=== PATIENT | female | born 1980 | race African-American/Black ===

== ENCOUNTER 2025-04-27 23:00 | Emergency (ER) | payer MEDICAID, OTHER ==
[~2025-04-27] VITALS: Ht 157.5 cm; Wt 95.3 kg
[2025-04-28] MEDS ORDERED: ONDANSETRON 4 MG/2 ML VIAL ONE (01:15)
[2025-04-28] MEDS ORDERED: MORPHINE SULFATE 2 MG/1 ML DISP.SYRIN ONE (01:16)
[2025-04-28] MEDS: ONDANSETRON HCL 4 MG TABLET PO ONE (01:25)
[2025-04-28] MEDS: MORPHINE SULFATE 2 MG/1 ML DISP.SYRIN IM ONE (01:25)
[2025-04-28] MEDS ORDERED: ETOMIDATE 20 MG/10 ML VIAL ONE (02:00)
[2025-04-28] MEDS: ETOMIDATE 20 MG/10 ML VIAL IV ONE (02:15)
[2025-04-28 02:55] LABS: PLATELET COUNT (AUTO) 300 K/uL (179-408); RED BLOOD CELL COUNT(AUTO) 4.36 MIL/uL (3.63-4.92); RED CELL DISTRIBUTION WIDTH 15.2 % (12.3-17.7); WHITE BLOOD COUNT (AUTO) 7.0 K/uL (3.8-11.8)
[2025-04-28 03:00] LABS: CREATININE 1.0 mg/dL (0.6-1.3); SODIUM SERUM 140.0 mmol/L (136-145); UREA NITROGEN, BLOOD 16.0 mg/dL (7-18)
[2025-04-28 03:05] LABS: ASPARTATE AMINOTRANSFERASE 11.0 U/L (15-37); TOTAL PROTEIN, SERUM 7.2 g/dL (6.4-8.2)
[2025-04-28] MEDS ORDERED: CEFTRIAXONE /D5W 50ML IVPB **ER PYXIS IV ONE (03:12)
[2025-04-28] MEDS: CEFTRIAXONE 500 MG VIAL IV ONE (03:20)
[2025-04-28] MEDS: IV NS 1000 ML 1,000 ML IV ONE (03:20)
[2025-04-28] MEDS ORDERED: CLIN-118 PO (03:56)
[2025-04-28] MEDS ORDERED: KETO10TA2 PO (03:56)
[2025-04-28] MEDS ORDERED: KETOROLAC TROMETHAMINE 30 MG INJ ONE (04:06)
[2025-04-28] MEDS: KETOROLAC TROMETHAMINE 30 MG INJ IVP ONE (04:15)
[2025-04-28 05:00] VITALS: BP 155/79
[2025-04-28 06:40] VITALS: BP 143/82; TEMP 98.1; O2SAT 98
== END 2025-04-28 05:45 | disposition home or self-care (01) ==
LOC: ER 23:00
DX: T19.2XXA Foreign body in vulva and vagina, initial encounter (principal); R10.2 Pelvic and perineal pain; I10 Essential (primary) hypertension; F12.90 Cannabis use, unspecified, uncomplicated; F17.200 Nicotine dependence, unspecified, uncomplicated; J45.909 Unspecified asthma, uncomplicated; Z91.040 Latex allergy status; W44.F9XA Other object of natural or organic material, entering into or through a natural orifice, initial encounter; Y93.89 Activity, other specified; Y92.89 Other specified places as the place of occurrence of the external cause; Y99.8 Other external cause status
CPT/HCPCS: 36415; 85025; 87040; A4606; A4663; G0500; J0360; J0696; J1885; J2270; J2405; J3490; J7040

== ENCOUNTER 2025-04-28 07:00 | Emergency (ER) | payer MEDICAID, OTHER ==
[~2025-04-28] VITALS: Ht 157.5 cm; Wt 95.3 kg
[~2025-04-28 07:00] MED LIST: CLIN-118 PO; KETO10TA2 PO
[2025-04-28 07:07] VITALS: BP 162/119
[2025-04-28 08:25] VITALS: BP 162/119; O2SAT 96
== END 2025-04-28 08:26 | disposition home or self-care (01) ==
LOC: ER 07:00
DX: T19.2XXA Foreign body in vulva and vagina, initial encounter (principal); F12.90 Cannabis use, unspecified, uncomplicated; F17.200 Nicotine dependence, unspecified, uncomplicated; J45.909 Unspecified asthma, uncomplicated; Z87.59 Personal history of other complications of pregnancy, childbirth and the puerperium; Z98.51 Tubal ligation status; Z91.040 Latex allergy status; W44.F9XA Other object of natural or organic material, entering into or through a natural orifice, initial encounter; Y93.89 Activity, other specified; Y92.89 Other specified places as the place of occurrence of the external cause; Y99.8 Other external cause status
CPT/HCPCS: A4606; A4663